=== PATIENT | male | born 1985 | race Caucasian/White ===

== ENCOUNTER 2017-12-11 20:31 | Emergency (ER) | payer BC ==
[~2017-12-11] VITALS: Ht 182.9 cm; Wt 84.5 kg
[2017-12-11 21:13] LABS: HEMATOCRIT 42.8 % (38.0-50.0); HEMOGLOBIN 15.6 G/DL (12.5-16.6); MCH 31.4 PG (29.0-34.0); MCHC 36.4 G/DL (30.0-36.0); MCV 86.1 FL (86-99); PLATELET COUNT 337 K/uL (156-360); RBC DIS.WIDTH-CV 11.5 % (11.8-14.6); RED BLOOD COUNT 4.97 M/uL (4.00-5.50); WHITE BLOOD COUNT 8.1 K/uL (4.1-10.2)
[2017-12-11 21:23] LABS: ALBUMIN 4.3 g/dL (3.2-4.8); CHLORIDE 104 mEq/L (99-109); POTASSIUM 3.8 mEq/L (3.7-5.4); SODIUM 138 mEq/L (136-147)
[2017-12-11 21:26] LABS: GLUCOSE 95 mg/dL (70-99); TOTAL PROTEIN 7.5 g/dL (6.4-8.3)
[2017-12-11 21:28] LABS: TOTAL BILIRUBIN 1.7 mg/dL (0.0-1.0)
[2017-12-11 21:29] LABS: ALKALINE PHOSPHATASE 106 IU/L (3-129); CREATININE 0.9 mg/dL (0.6-1.3); GFR ESTIMATE (CALCULATED) > 59 mL/min/ (58.99-99999)
[2017-12-11 21:30] LABS: UREA NITROGEN (BUN) 13 mg/dL (9-23)
[2017-12-11 21:31] LABS: AST (GOT) 69 IU/L (2-34)
[2017-12-11 21:32] LABS: ALT (GPT) 65 IU/L (3-49)
[2017-12-11 22:27] LABS: APPEARANCE CLEAR ((CLEAR)); BILIRUBIN NEGATIVE; BLOOD NEGATIVE; COLOR YELLOW ((YELLOW)); GLUCOSE (STRIP) NEGATIVE; KETONES NEGATIVE; LEUKOCYTES NEGATIVE; NITRITE NEGATIVE; PROTEIN (STRIP) 30; SPECIFIC GRAVITY 1.027 (1.000-1.030); UCUL ADDED? NO; UROBILINOGEN 0.2 MG/DL (0.2-1.0)
[2017-12-11] MEDS ORDERED: SKELAXIN800 MG PO (23:05)
[2017-12-11] MEDS ORDERED: NAPROXEN500 MG PO (23:05)
[2017-12-11 23:10] VITALS: BP 120/65
== END 2017-12-11 23:10 | disposition home or self-care (01) ==
LOC: EME 20:31 → RME 20:31
PROVIDERS: Physician Assistant
DX: M62.830 Muscle spasm of back (principal); R10.9 Unspecified abdominal pain
CPT/HCPCS: 74176; 80053; 81003; 85027; 99281; 99283